=== PATIENT | male | born 2000 | race Caucasian/White ===

== ENCOUNTER 2020-07-05 11:51 | Emergency (ER) | payer SELFPAY ==
[2020-07-05 12:02] VITALS: BP 108/70; PULSE 82; RESP 14; TEMP 36.8; O2SAT 98; BMI 16.2
[2020-07-05 12:36] LABS: Basophils % 0.2 %; Eosinophils # 0.1 10^3/uL (0.0-0.8); Eosinophils % 0.6 %; Hematocrit 45.6 % (42.0-52.0); Hemoglobin 15.4 g/dL (11.7-16.6); Lymphocytes # 0.7 10^3/uL (0.8-4.8); Lymphocytes % 4.1 %; Mean Corpuscular HGB Conc 33.8 g/dL (30.0-36.0); Mean Corpuscular Hemoglobin 30.3 pg (28.0-34.0); Mean Corpuscular Volume 89.8 fL (80-94); Mean Platelet Volume 10.3 fL (7.4-10.4); Monocytes # 0.9 10^3/uL (0.2-0.9); Monocytes % 5.5 %; Neutrophils # 14.49 10^3/uL (1.8-7.7); Neutrophils % 89.2 %; Nucleated Red Blood Cells % 0 %; Platelet Count 243 10^3/cmm (130-400); Red Blood Count 5.08 10^6/uL (4.1-5.3); Red Cell Distribution Width 11.8 % (12.1-15.1); White Blood Count 16.2 10^3/uL (4.0-10.0)
[2020-07-05] MEDS: ondansetron 2 mg/ML SDV 2 mL 4 MG IVP (12:41)
[2020-07-05] MEDS: sodium chloride 0.9% 1,000 ML 999 ML IV (12:42)
[2020-07-05 12:46] VITALS: BP 113/54; PULSE 57; RESP 14; O2SAT 97
--- NOTE | 2020-07-05 13:03 | ED_ITS ---
HPI - Abdominal Pain General: Chief Complaint: Abdominal Pain Stated Complaint: VOMITING BLOOD Time Seen by Provider: 07/05/20 12:13 History of Present Illness: HPI narrative: The patient is a 19-year-old male with no significant past medical history who comes to the ER complaining of abdominal pain and vomiting phlegmy substance 7-10 times this morning starting at 9 AM he says the phlegm is mixed with a couple drops of blood as well. He denies eating bad or raw food. No sick contacts. He says his belly hurts diffusely. He has not tried to eat or drink anything since this morning. MD elicited complaint: abdominal pain Onset (ago): hour(s) (4) Pain Consistency: constant and colicky Location: Diffuse Severity: mild Quality: cramping Migration to: no migration Exacerbating factors: nothing Associated Symptoms: Reports nausea and vomiting; Denies diarrhea Review of Systems General: Reports: 10 or more systems reviewed and unremarkable except in HPI and below Const: Denies: fatigue Eyes: Denies: change in vision, blurry vision or eye redness ENMT: Denies: throat pain, swelling of lips/tongue, ear or mastoid pain or nasal congestion Card: Denies: chest pain, palpitations, irregular heart rhythm, edema, dyspnea on exertion or orthopnea Resp: Denies: dyspnea, productive cough or non-productive cough GI: Reports: nausea and vomiting; Denies: diarrhea : Denies: flank pain, urinary frequency or urinary urgency Musc: Denies: neck pain, back pain, extremity pain, joint pain, joint redness, limited range of motion or muscle weakness Skin/Breast: Denies: rash, pruritus, erythema, skin pain or skin tenderness Neuro: Denies: headache(s), numbness in extremities, weakness in extremities, sensory changes, difficulty walking, dizziness, confusion or Slurred speech present Psych: Denies: anxiety or depression Endo: Denies: polyuria All/Imm: Denies: urticaria, throat swelling or tongue swelling Physical Exam Const: COMMON NORMALS: no acute distress, average body habitus, patient oriented x3, no limitations, healthy appearing, alert and well nourished GENERAL APPEARANCE: cooperative, comfortable, well kempt and well developed ORIENTATION/CONSCIOUSNESS: Yes awake, Yes oriented to person, Yes oriented to place and Yes oriented to time HENMT: COMMON NORMALS: normocephalic, external ears normal and Normal external nose present HEAD & SCALP: normal to inspection and normocephalic NOSE: Normal external nose present EXTERNAL EAR: Yes external ears normal MOUTH: Normal oral and palatal mucosa present THROAT: posterior oropharynx normal Eye: COMMON NORMALS: Equal, round and reactive pupils present and EOMs intact bilaterally GENERAL EYE: appearance normal, both eyes and all related structures PUPIL: Yes Equal, round and reactive pupils present Neck/C-Spine: COMMON NORMALS: full ROM, no lymphadenopathy, no meningeal signs and no JVD GENERAL: Yes normal visual inspection Lymph: LYMPHATIC: no lymphadenopathy noted Chest: COMMONS NORMALS: normal inspection of the chest and normal palpation of entire chest wall Resp: COMMON NORMALS: normal respiratory effort, No retractions, No use of accessory muscles, clear to auscultation bilaterally and percussion normal EFFORT & INSPECTION: Yes able to speak in complete sentences AUSCULTATION: clear to auscultation bilaterally PERCUSSION: percussion normal Cardio: COMMON NORMALS: no JVD, regular rate, regular rhythm, S1 normal heart sound present, S2 normal heart sound present and Peripheral pulses 2+ throughout RATE: regular rate RHYTHM: regular rhythm HEART SOUNDS: S1 normal heart sound present and S2 normal heart sound present PERIPHERAL PULSES: Peripheral pulses 2+ throughout GI: COMMON NORMALS: Normal to inspection, nondistended, normoactive bowel sounds present, Soft to palpation, non-tender and no masses INSPECTION: Yes normal to inspection PALPATION: Yes Soft to palpation : COMMON NORMALS: Yes no CVA tenderness BLADDER/KIDNEY EXAM: Yes no CVA tenderness Back/Pelvis: COMMON NORMALS: no CVA tenderness, thoracic and lumbar spine normal to inspection, no thoracic nor lumbar tenderness and thoraco-lumbar ROM normal Extremity: COMMON NORMALS: normal to inspection, full ROM, capillary refill normal, no joint enlargement and no pedal edema GENERAL: Yes normal exam except as noted Neuro: COMMON NORMALS: patient oriented x3, CN's II-XII intact bilaterally, moves all extremities, no focal motor deficits, no sensory deficits noted and gait normal SENSORIUM/ORIENTATION: Yes alert, Yes oriented to person, Yes oriented to place and Yes oriented to time MENINGEAL SIGNS: Yes no meningeal signs Psych: COMMON NORMALS: mental status grossly normal, Normal thought process present, cooperative, normal affect and speech normal APPEARANCE: Yes well kempt ATTITUDE: Yes calm SPEECH: Yes normal speech THOUGHT PROCESS: Normal thought process present Skin: COMMON NORMALS: no rashes or lesions noted GENERAL SKIN EXAM: no rashes or lesions noted Course Vital Signs: Vital signs: Vital Signs Temperature 98.3 F 07/05/20 12:02 Pulse Rate 57 L 07/05/20 12:46 Respiratory Rate 14 07/05/20 12:46 Blood Pressure 113/54 07/05/20 12:46 Pulse Oximetry 97 07/05/20 12:46 MDM - Abdominal Pain MDM Narrative: Medical decision making narrative: The patient came in for nausea and vomiting. He was given Zofran and IV fluids and started to feel better. He was tolerating oral liquids and asking for discharge. He declined an abdominal CT. Recommended returning to the ER with worsening symptoms. Advance diet as tolerated and drink lots of fluids. He had no vomiting in the ER Lab Data: Labs: Lab Results 07/05/20 07/05/20 07/05/20 Range/Units 12:22 12:22 12:22 WBC 16.2 H (4.0-10.0) 10^3/ uL RBC 5.08 (4.1-5.3) 10^6/u L Hgb 15.4 (11.7-16.6) g/dL Hct 45.6 (42.0-52.0) % MCV 89.8 (80-94) fL MCH 30.3 (28.0-34.0) pg MCHC 33.8 (30.0-36.0) g/dL RDW 11.8 L (12.1-15.1) % Plt Count 243 (130-400) 10^3/c mm MPV 10.3 (7.4-10.4) fL Neut % (Auto) 89.2 % Lymph % (Auto) 4.1 % [place] % (Auto) 5.5 % Eos % (Auto) 0.6 % Baso % (Auto) 0.2 % Neut # (Auto) 14.49 H (1.8-7.7) 10^3/u L Lymph # (Auto) 0.7 L (0.8-4.8) 10^3/u L [place] # (Auto) 0.9 (0.2-0.9) 10^3/u L Eos # (Auto) 0.1 (0.0-0.8) 10^3/u L Baso # (Auto) 0.0 (0.0-0.1) 10^3/u L Nucleated RBC % (a uto) 0 % Nucleated RBCs # 0.0 /100WBC Sodium 139 (136-145) mmol/L Potassium 4.2 (3.5-5.1) mmol/L Chloride 103 (98-107) mmol/L Carbon Dioxide 26 (22-29) mmol/L Anion Gap 14.2 (5-19) BUN 11 (6-20) mg/dL Creatinine 0.5 L (0.7-1.2) mg/dL GFR Calculation 209.9 H (90-130) mL/min Glucose 99 (65-115) mg/dL Calculated Osmolal ity 287 (285-295) mOsm/k g Lactate 0.9 (0.5-2.2) mmol/L Calcium 9.5 (8.5-10.5) mg/dL Total Bilirubin 0.9 (0.15-1.2) mg/dL AST 16 (0-40) U/L ALT 7 (0-41) U/L Alkaline Phosphata se 79 (40-130) IU/L Total Protein 8.0 (6.6-8.7) g/dL Albumin 4.8 (3.5-5.2) g/dL Globulin 3.2 (1.3-4.6) g/dL Lipase 24 (13-60) U/L Discharge Plan Discharge Patient Disposition: Home Clinical Impression: Gastroenteritis Condition: Stable Prescriptions: New ondansetron 4 mg tablet,disintegrating 4 mg PO Q8H PRN (Reason: Nausea And Vomiting) 5 Days Qty: 15 RF: 0 No Action Claritin 10 mg Tablet 10 mg PO DAILY PRN (Reason: Allergy Symptoms) RF: 0 Discharge Orders: Discharge ED (Routine); Ordered 07/05/20 Ordered By: Stanford Pitts Discharge Diet: Advance as tolerated Discharge Activity: Resume usual activity Patient Instructions: Opioid Safety Activity Restrictions/Additional Instructions: You likely have nausea and vomiting from a stomach bug or bad food. Please slowly increase your eating and drinking and use Zofran to help you with your nausea. You may also develop diarrhea down the road. Drink lots of fluids if you are able. Return to the ER with worsening symptoms otherwise follow-up with your primary care physician. Coding Level of Care Code ED Low Voltage Technician for Chg Fwd Exam Comprehensive
[2020-07-05 13:06] LABS: Alanine Aminotransferase 7 U/L (0-41); Albumin Level 4.8 g/dL (3.5-5.2); Alkaline Phosphatase 79 IU/L (40-130); Anion Gap 14.2 (5-19); Aspartate Amino Transferase 16 U/L (0-40); Blood Urea Nitrogen 11 mg/dL (6-20); Calcium 9.5 mg/dL (8.5-10.5); Carbon Dioxide 26 mmol/L (22-29); Chloride 103 mmol/L (98-107); Creatinine Clr Calc Pharmacy 164.9307; Globulin 3.2 g/dL (1.3-4.6); Glomerular Filtration Rate 209.9 mL/min (90-130); Glucose 99 mg/dL (65-115); Lipase 24 U/L (13-60); Osmolality Calculated 287 mOsm/kg (285-295); Potassium 4.2 mmol/L (3.5-5.1); Sodium 139 mmol/L (136-145); Total Bilirubin 0.9 mg/dL (0.15-1.2)
[2020-07-05 13:07] LABS: Lactate (Lactic Acid level) 0.9 mmol/L (0.5-2.2)
--- NOTE | 2020-07-05 13:59 | PC.NURSE ---
patient denied any pain at this time.
[2020-07-05 15:08] VITALS: BP 129/55; PULSE 88; RESP 16; O2SAT 98
--- NOTE | 2020-07-06 15:27 | DCPLANNER ---
detail manager had message to speak with patient about getting established with a primary care physician. detail manager called phone number [phone], unable to speak with patient and unable to leave a voicemail for patient.
== END 2020-07-05 15:09 | disposition home or self-care (01) ==
PROVIDERS: Physician Assistant; Emergency Provider Family Medicine
DX: K52.9 Noninfective gastroenteritis and colitis, unspecified (principal)
CPT/HCPCS: 80053; 83605; 83690; 85025; 96374; 99283; J2405; J7030

== ENCOUNTER 2022-03-10 21:50 | Emergency (ER) | payer SELFPAY ==
[2022-03-10 21:58] VITALS: BP 129/70; PULSE 65; RESP 16; TEMP 36.8; O2SAT 98
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
[2022-03-11 01:21] VITALS: BP 117/94; PULSE 60; RESP 14; O2SAT 97
== END 2022-03-11 01:15 | disposition home or self-care (01) ==
PROVIDERS: Emergency Provider Nurse Practitioner
DX: S13.4XXA Sprain of ligaments of cervical spine, initial encounter (principal); S29.012A Strain of muscle and tendon of back wall of thorax, initial encounter; S39.012A Strain of muscle, fascia and tendon of lower back, initial encounter; M62.830 Muscle spasm of back; V89.2XXA Person injured in unspecified motor-vehicle accident, traffic, initial encounter
CPT/HCPCS: 72125; 72128; 72131; 99284